=== PATIENT | female | born 1950 | race Caucasian/White ===

== ENCOUNTER 2017-02-05 15:14 | Emergency (ER) | payer OTHER ==
[~2017-02-05] VITALS: Ht 154.9 cm; Wt 80.0 kg
[2017-02-05 15:27] VITALS: BP 160/77; PULSE 83; RESP 20; TEMP 97.9; O2SAT 97
[2017-02-05] MEDS ORDERED: DILT-64 PO (15:47)
[2017-02-05] MEDS ORDERED: TRIA37.5 PO (15:47)
[2017-02-05] MEDS ORDERED: LEVO.075 PO (15:47)
[2017-02-05] MEDS ORDERED: ROSU5 PO (15:47)
--- NOTE | 2017-02-05 15:48 | PD ---
HPI Chief Complaint: Fall Time Seen by Provider: 15:48 Travel History International Travel<30 days: No Contact w/Intl Traveler<30days: No Traveled to known affect area: No History of Present Illness HPI 66-year-old female with a history of hypertension is brought to the emergency department for evaluation of low back pain status post fall. The patient states that she was reaching forward to close the windows in her house when the window came out of the wall and fell on top of her. States that it hit her on the face and nose causing her to fall landing on her bottom. States that she thinks she may have lost consciousness for 1-2 seconds. She is complaining of severe pain in her lower back. Pain is aggravated with movement and palpation. Denies any alleviating factors. Did she has a slight headache and some pain in the bridge of her nose. Denies any lightheadedness, dizziness, nausea, vomiting, vision changes, numbness or tingling, weakness, saddle anesthesia, bowel or bladder incontinence. Denies any anticoagulation. No other complaints. PFSH Past Medical History Cardiovascular Problems: Yes Hypertension: Yes Thyroid Disease: Yes Triglycerides - High: Yes Tetanus Vaccination: < 5 Years Past Surgical History Hysterectomy: Yes Other Surgery: Yes (hernia and thyroid) Social History Alcohol Use: No Tobacco Use: No Substance Use: No Allergies-Medications (Allergen,Severity, Reaction): Coded Allergies: Aspirin (Verified Allergy, Severe, 02/05/17) Cephalosporins (Verified Allergy, Severe, 02/05/17) Motrin (Verified Allergy, Severe, 02/05/17) Shellfish (Verified Allergy, Severe, Anaphylaxis, 02/05/17) Ceftin (Verified Allergy, Unknown, 02/05/17) Reported Meds & Prescriptions Reported Meds & Active Scripts Active Reported Crestor (Rosuvastatin Calcium) 5 Mg Tab 5 Mg PO DAILY Triamterene-Hydrochlorothiazide 37.5-25 Mg Tab 1 Tab PO DAILY Synthroid (Levothyroxine Sodium) 75 Mcg Tab 75 Mcg PO DAILY Diltiazem CD 24 HR 240 Mg Caper 240 Mg PO DAILY Review of Systems Except as stated in HPI: all other systems reviewed are Neg Physical Exam Narrative GENERAL: Well-nourished and well-developed pleasant female patient in moderate amount of pain but no acute distress. SKIN: No obvious lacerations or abrasions noted. HEAD: Normocephalic and atraumatic. No bony point tenderness or crepitus noted throughout the scalp and facial bones. EYES: No scleral icterus, injection, or drainage. PERRLA. EOMI. No hyphema present. ENT: Tenderness to palpation of bridge of nose. No septal hematoma or hemotympanum noted. Oropharynx is clear and the airway is patent. NECK: Supple and the trachea is midline. No obvious deformities, crepitus, or midline tenderness noted. CARDIOVASCULAR: Regular rate and rhythm. RESPIRATORY: Breath sounds are equal bilaterally with no accessory muscle use, wheezing, rhonchi, or crackles. GASTROINTESTINAL: Abdomen is soft, non-tender, and nondistended. MUSCULOSKELETAL: No obvious deformities, swelling, cyanosis, or ecchymosis is present throughout the upper and lower extremities. Patient has full range of motion without any signs of neurovascular compromise. Strength 5/5 upper and lower extremities equal bilaterally. BACK: Midline tenderness to palpation of lumbar spine. No obvious deformities or crepitus noted throughout the thoracic and lumbar vertebrae. NEUROLOGICAL: Awake, alert, and oriented. Normal speech and gait. Cranial nerves are grossly intact. Data Data Last Documented VS Vital Signs Date Time Temp Pulse Resp B/P Pulse Ox O2 Delivery O2 Flow Rate FiO2 02/05/17 15:27 97.9 83 20 160/[address] Brain W/O Iv Contrast(Rout) (02/05/17 15:47) Ct Lumb Spine W/O Contrast (02/05/17 15:47) Ct Facial Bones W/O Iv Cont (02/05/17 15:47) Splint Or Brace Apply/Monitor (02/05/17 17:31) Oxycodone-Acetamin 5-325 Mg (Percocet (02/05/17 17:45) MDM Medical Decision Making Medical Screen Exam Complete: Yes Emergency Medical Condition: Yes Differential Diagnosis Fracture versus discogenic pain versus herniated disc versus other Narrative Course 66-year-old female is brought to the emergency department by EMS for evaluation of low back pain status post fall onto her buttocks with a heavy window on top of her. Patient is afebrile, vital signs are stable. She does have midline lumbar spine tenderness and reports hitting her head with possible loss of consciousness. CT imaging of the head, facial bones and lumbar spine has been ordered and is pending. Patient is offered pain medication but at this time is declining. Head CT is negative for any acute abnormalities. CT of the facial bones is negative for any acute abnormalities. CT of the lumbar spine shows mild acute compression deformities involving the superior endplate of L1 and L2. Mild to moderate circumferential spinal stenosis and mild bilateral foraminal narrowing at L4-L5. Grade 1 anterolisthesis of L4 in relation to L5. My attending physician Dr. Poole spoke with the patient and her regarding all findings. Denies any physician spoke with orthopedic surgeon editor continuity and script regarding the patient's compression fractures who recommends TLSO brace and follow-up in the office. Patient is stable for discharge. Diagnosis Primary Impression: Compression fracture of L1 lumbar vertebra Qualified Code: S32.010A - Compression fracture of L1 lumbar vertebra, closed , initial encounter Additional Impression: Compression fracture of L2 lumbar vertebra Qualified Code: S32.020A - Compression fracture of L2 lumbar vertebra, closed , initial encounter Referrals: Dalton Adan MD Orthopaedic Surgeon Patient Instructions: General Instructions, Vertebral Compression Fracture (ED) Additional Instructions: TLSO brace. Apply ice for 20 minutes on, 20 minutes off. Take medication as prescribed with food and a full glass of water. Because of fall taking Percocet due to sedation side effects. Do not take this medicine with alcohol or driving. Follow-up with orthopedic spine surgeon. Return to the ED for any acute worsening of symptoms. Med/Other Pt SpecificInfo: Prescription(s) given Scripts Oxycodone-Acetaminophen (Percocet)5-325 mg Tab1-2 Tab PO Q6H PRN (PAIN GREATER THAN 6) #20 TAB Ref 0 Prov:Kostas Orozco MD 02/05/17 Disposition: 01 DISCHARGE HOME Condition: Stable Renee Bethea Feb 05, 2017 15:48
--- NOTE | 2017-02-05 16:30 | RADRPT ---
EXAM DATE/TIME: 02/05/2017 16:05 [facility] COMPARISON: CT FACIAL BONES W/O CONTRAST, February 05, 2017, 16:08. INDICATIONS : Closing window fell on patient; head and back pain. RADIATION DOSE: 45.79 CTDIvol (mGy) MEDICAL HISTORY : Cardiovascular disease. Hypertension. SURGICAL HISTORY : None. ENCOUNTER: Initial ACUITY: 1 day PAIN SCALE: 3/10 LOCATION: Bilateral cranial TECHNIQUE: Multiple contiguous axial images were obtained of the head. Using automated exposure control and adj ustment of the mA and/or kV according to patient size, radiation dose was kept as low as reasonably a chievable to obtain optimal diagnostic quality images. FINDINGS: CEREBRUM: The ventricles are normal for age. No evidence of midline shift, mass lesion, hemorrhage or acute in farction. No extra-axial fluid collections are seen. POSTERIOR FOSSA: The cerebellum and brainstem are intact. The 4th ventricle is midline. The cerebellopontine angle i s unremarkable. EXTRACRANIAL: The visualized portion of the orbits is intact. SKULL: The calvaria is intact. No evidence of skull fracture. CONCLUSION: No acute disease. Juan Duarte MD on February 05, 2017 at 16:27 Board Certified Radiologist. This report was verified electronically.
--- NOTE | 2017-02-05 16:39 | RADRPT ---
EXAM DATE/TIME: 02/05/2017 16:08 [facility] COMPARISON: No previous studies available for comparison. INDICATIONS : Closing window fell on patient; head and back pain. RADIATION DOSE: 36.33 CTDIvol (mGy) MEDICAL HISTORY : Cardiovascular disease. Hypertension. SURGICAL HISTORY : None. ENCOUNTER: Initial ACUITY: 1 day PAIN SCORE: 4/10 LOCATION: facial TECHNIQUE: Volumetric scanning of the facial bones was performed. Using automated exposure control and adjustme nt of the mA and/or kV according to patient size, radiation dose was kept as low as reasonably achiev able to obtain optimal diagnostic quality images. FINDINGS: ORBITS: The orbital and infraorbital osseous structures are intact. The retroconal structures have a normal configuration. No radiopaque foreign bodies are seen. NASAL BONE: The nasal bone and maxillary spine are intact. Right-sided desean bullosa is noted. ZYGOMATIC ARCHES: Symmetric without evidence of fracture. SINUSES: The maxillary, ethmoid and frontal sinuses are intact. No air-fluid levels seen. NASAL CAVITY: There is nasal septal deviation to the left. The lacrimal ducts are intact. SOFT TISSUES: No radiopaque foreign bodies seen. No soft-tissue swelling is seen. INTRACRANIAL: No intracranial air seen. CRIBIFORM PLATE: Grossly intact. CONCLUSION: No acute facial bone fracture. Nasal septal deviation to the left. Right-sided desean bullosa. Juan Duarte MD on February 05, 2017 at 16:35 Board Certified Radiologist. This report was verified electronically.
--- NOTE | 2017-02-05 16:49 | RADRPT ---
EXAM DATE/TIME: 02/05/2017 16:10 [facility] COMPARISON: No previous studies available for comparison. INDICATIONS : Closing window fell on patient; head and back pain. RADIATION DOSE: 27.47 CTDIvol (mGy) MEDICAL HISTORY : Hypertension. Cardiovascular disease SURGICAL HISTORY : Hysterectomy. ENCOUNTER: Initial ACUITY: 1 day PAIN SCALE: 5/10 LOCATION: Lower back TECHNIQUE: Volumetric scanning of the lumbar spine was performed. Multiplanar reconstructions in the sagittal, coronal and oblique axial planes were performed. Using automated exposure control and adjustment of the mA and/or kV according to patient size, radiation dose was kept as low as reasonably achievable t o obtain optimal diagnostic quality images. FINDINGS: There is evidence of mild acute compression deformities involving the L1 and L2 vertebral bodies. The re is no retropulsed fragment resulting in compromise of the spinal canal. There is Grade I anteroli sthesis of L4 in relation to L5. Mild degenerative changes are noted involving the lower thoracic sp ine. Mild to moderate circumferential spinal stenosis is noted at L4-5 secondary to mild diffuse dis c bulge, Grade I anterolisthesis of L4 in relation to L5, facet joint hypertrophy and ligamentous lax ity. There is also mild bilateral foraminal narrowing at L4-5. CONCLUSION: 1. Mild acute compression deformities involving the superior endplates of L1 and L2. 2. Mild to moderate circumferential spinal stenosis and mild bilateral foraminal narrowing at L4-5. 3. Grade I anterolisthesis of L4 in relation to L5. Juan Duarte MD on February 05, 2017 at 16:39 Board Certified Radiologist. This report was verified electronically.
[2017-02-05] MEDS ORDERED: PERC5TAB12 PO (17:38)
[2017-02-05] MEDS ORDERED: oxyCODONE/ACETAMINOPHEN 5 MG/325 MG TAB PO ONE (17:45)
[2017-02-05] MEDS ORDERED: ONDANSETRON HCL 4 MG/2 ML VIAL ONE (18:15)
--- NOTE | 2017-02-05 18:44 | PD ---
Data Data Last Documented VS Vital Signs Date Time Temp Pulse Resp B/P Pulse Ox O2 Delivery O2 Flow Rate FiO2 02/05/17 15:27 97.9 83 20 160/[address] Brain W/O Iv Contrast(Rout) (02/05/17 15:47) Ct Lumb Spine W/O Contrast (02/05/17 15:47) Ct Facial Bones W/O Iv Cont (02/05/17 15:47) Splint Or Brace Apply/Monitor (02/05/17 17:31) Oxycodone-Acetamin 5-325 Mg (Percocet (02/05/17 17:45) Ondansetron Inj (Zofran Inj) (02/05/17 18:15) MDM Supervised Visit with [place]: Yes Narrative Course I evaluated this patient and spoke with her who is a neurologist in [place]. She has mild acute compression fracture of L1 and L2. She is neurologically intact. I reviewed the case in detail with our orthopedist online tutor Dr. Adan. He recommended TLSO brace which we applied. We gave her some medication for pain. They will follow-up with orthopedist. Diagnosis Primary Impression: Compression fracture of L1 lumbar vertebra Qualified Code: S32.010A - Compression fracture of L1 lumbar vertebra, closed , initial encounter Additional Impression: Compression fracture of L2 lumbar vertebra Qualified Code: S32.020A - Compression fracture of L2 lumbar vertebra, closed , initial encounter Referrals: Dalton Adan MD Orthopaedic Surgeon Patient Instructions: General Instructions, Vertebral Compression Fracture (ED) Departure Forms: Tests/Procedures Additional Instruction: TLSO brace. Apply ice for 20 minutes on, 20 minutes off. Take medication as prescribed with food and a full glass of water. Because of fall taking Percocet due to sedation side effects. Do not take this medicine with alcohol or driving. Follow-up with orthopedic spine surgeon. Return to the ED for any acute worsening of symptoms. Scripts Oxycodone-Acetaminophen (Percocet)5-325 mg Tab1-2 Tab PO Q6H PRN (PAIN GREATER THAN 6) #20 TAB Ref 0 Prov:Kostas Orozco MD 02/05/17 Disposition: 01 DISCHARGE HOME Condition: Stable Kostas Orozco MD Feb 05, 2017 18:44
[2017-02-05] MEDS ORDERED: ONDANSETRON HCL 4 MG/2 ML VIAL IV ONE (18:45)
== END 2017-02-05 18:46 | disposition home or self-care (01) ==
LOC: NEPC 15:14
DX: S32.010A Wedge compression fracture of first lumbar vertebra, initial encounter for closed fracture (principal); S32.020A Wedge compression fracture of second lumbar vertebra, initial encounter for closed fracture; S09.90XA Unspecified injury of head, initial encounter; I10 Essential (primary) hypertension; E07.9 Disorder of thyroid, unspecified; W18.30XA Fall on same level, unspecified, initial encounter; W20.8XXA Other cause of strike by thrown, projected or falling object, initial encounter; Y93.89 Activity, other specified; Y92.009 Unspecified place in unspecified non-institutional (private) residence as the place of occurrence of the external cause; Y99.8 Other external cause status
CPT/HCPCS: 70450; 70486; 72131; 96374; 99284; J2405; L0200; L0484